=== PATIENT | female | born 1970 | race African-American/Black ===

== ENCOUNTER 2024-09-17 09:14 | Emergency (ER) | payer MEDICARE, SELFPAY ==
--- NOTE | ~2024-09-17 | CT_ITS ---
CT brain wo con Ordering provider: Alda Villaseñor PA-C History: 54 years Female with . MORILLO [id number], worsening today . Comparison: None. Technique: CT of the head without contrast. Radiation reduction technique utilized.The dose-length product was 605.33 mGy-cm. A a FINDINGS: BRAIN PARENCHYMA AND CSF SPACES: No midline shift, mass effect or hemorrhage. The brain parenchyma a nd CSF spaces are otherwise normal. VISUALIZED PARANASAL SINUSES: Ethmoid sinus MASTOIDS: Well aerated. BONES: The bones appear intact. SOFT TISSUES: Visualized nasopharynx is normal. Superficial soft tissues are normal. IMPRESSION: No acute intracranial findings. Reviewed, dictated and finalized at location A. NEL CEMENTER OUTSOLE MACHINE
--- NOTE | ~2024-09-17 | XR_ITS ---
EXAMINATION: XR chest 2V DATE: 09/17/2024 10:46 INDICATION: Right-sided chest pain and heaviness TECHNIQUE: PA and lateral views of the chest were obtained. COMPARISON: Chest CT dated 06/18/2018 FINDINGS: The lungs are clear with no focal airspace opacities, pulmonary edema, pleural effusion or pneumothor ax. The cardiomediastinal silhouette is normal. Cholecystectomy clips in right upper quadrant. Scolio sis with mild upper thoracic levocurvature and thoracolumbar dextrocurvature. Mild to moderate thorac olumbar spondylosis. Suggestion of and mild age-indeterminate L1 superior endplate compression fractu re. IMPRESSION: 1. No acute cardiopulmonary disease. Reviewed, dictated and finalized at location B. INSTRUCTOR
[2024-09-17 09:18] VITALS: BP 139/89; PULSE 56; RESP 16; TEMP 36.3; O2SAT 98
--- NOTE | 2024-09-17 09:22 | ECG_ITS ---
Test Date: 2024-09-17 09:28:17 Measurements Intervals [place] Rate: 61 P: 0 TX: 151 QRS: -25 QRSD: 93 T: 6 QT: 406 QTc: 409 Interpretive Statements SINUS RHYTHM consider anterior ischemia No previous ECG available for comparison Electronically Signed On 09-17-2024 21:50:59 STEM ROLLER OR CRUSHER OPERATOR by Jaya Rutledge M.D.
[2024-09-17 09:30] VITALS: BP 143/96; PULSE 63; RESP 17; O2SAT 98
--- NOTE | 2024-09-17 10:34 | ED_ITS ---
HPI - Headache General Chief Complaint: Headache Stated Complaint: h/a Time Seen by Provider: 09/17/24 09:48 Source: patient Mode of arrival: ambulatory Limitations: no limitations History of Present Illness HPI Narrative: Patient is a 54-year-old female who presents the ED with report of headache. Patient reports she has been dealing with migraines intermittently over the last 6 months. States current migraine began a couple of weeks ago but became worse this morning. Present diffusely throughout her head. Has been taking Imitrex without improvement over the last few days. Reports nausea, lightheadedness, photophobia, phonophobia. Denies focal weakness or numbness, vision changes, fevers, neck pain. Patient does also report having slight chest heaviness over the last several days. Present currently. Denies shortness of breath. Does have history of COPD. Related Data Allergies Allergy/AdvReac Type Severity Reaction Status Date / Time Penicillins Allergy Mild Hives Verified 09/17/24 09:27 Sulfa (Sulfonamide Allergy Mild Hives Verified 09/17/24 09:27 Antibiotics) tramadol Allergy Mild Muscle Verified 09/17/24 09:27 Spasms lurasidone AdvReac Mild Nausea Verified 09/17/24 11:11 naproxen AdvReac Mild Nausea Verified 09/17/24 11:11 NSAIDS (Non-Steroidal AdvReac Mild Nausea Verified 09/17/24 11:11 Anti-Inflamma Review of Systems 2 Review of Systems: All systems reviewed & are unremarkable except as noted in HPI. All systems reviewed & are unremarkable except as noted in HPI and below Exam 2 Narrative: GENERAL: Well appearing, morbidly obese with BMI of 41.2, non-toxic, in no acute distress. HEAD: Normocephalic, atraumatic. EYES: PERRL/EOMI, conjunctiva clear. No nystagmus. NECK: supple, normal ROM, no meningeal signs. RESPIRATORY: Airway patent, respirations nonlabored. Clear to auscultation bilaterally, no rales, rhonchi, wheezing. CARDIOVASCULAR: Regular rate and rhythm without murmurs, rubs, or gallops. MUSCULOSKELETAL: Moves all extremities. No gross deformities. No chest wall tenderness to palpation. SKIN: Warm, dry, normal color. NEURO: A&O X3. Speech clear. Cranial nerves II-XII grossly intact. Steady gait. No ataxic movements. No focal deficits. PSYCHIATRIC: Appropriate mood and affect. Normal interaction. Course Vital Signs Vital signs: Vital Signs Temperature 97.4 F L 09/17/24 09:18 Pulse Rate 56 L 09/17/24 09:18 Respiratory Rate 16 09/17/24 09:18 Blood Pressure 139/89 09/17/24 09:18 Pulse Oximetry 98 09/17/24 09:18 Oxygen Delivery Room Air 09/17/24 09:18 Temperature 97.4 F L 09/17/24 09:18 Pulse Rate 63 09/17/24 09:30 Respiratory Rate 17 09/17/24 09:30 Blood Pressure 143/96 H 09/17/24 09:30 Pulse Oximetry 98 09/17/24 09:30 Oxygen Delivery Room Air 09/17/24 09:18 MDM - Headache MDM Narrative Medical decision making narrative: Patient presented to ED with diffuse migraine headache, worsening this morning. History of migraines. Also reporting chest heaviness. Vital signs are stable upon arrival. Patient is neurovascularly intact. In no acute distress. Patient's headache was not sudden in onset or maximal in severity. There are no focal neurological deficits on exam. Subarachnoid hemorrhage is felt to be unlikely at this time. CT brain was obtained and negative for acute intracranial abnormality. There is no history of fever and neck is supple on evaluation without meningeal signs. Meningitis is felt to be unlikely. No traumatic history or signs of trauma on evaluation. No vision changes or ocular signs of acute glaucoma. Cardiac workup was reassuring. EKG is without ischemic changes. Some baseline artifact noted. Baseline troponin is undetectable. Pain has been ongoing for several days. Very low suspicion for ACS at this time. HEART score =2. Laboratory studies are otherwise unremarkable. Chest x-ray is clear. Patient feeling much better after migraine cocktail. States she is ready to go home. Patient felt to be stable for discharge home at this time. Advised patient to follow with PCP for further evaluation. Given reasons to return. She agrees with plan. Discharged in stable condition. Patient is currently residing at [facility]. Medical Records Attestation: I reviewed the patient's medical records. Lab Data Attestation: I reviewed the patient's lab results. 09/17/24 10:37 09/17/24 10:37 Labs: Lab Results 09/17/24 Range/Units 10:37 WBC 6.4 (4.5-10.0) K/mm3 RBC 4.70 (4.2-5.4) M/mm3 Hgb 13.5 (12.0-15.0) g/dL Hct 41.0 (37.0-47.0) % MCV 87.2 (80-100) fl MCH 28.7 (26-34) pg MCHC 32.9 (32-36) g/dl RDW 14.2 (11.5-14.5) % Plt Count 300 (150-375) k/mm3 MPV 9.5 (7.4-10.4) fl Immature Gran % (Auto) 0.3 (0-0.5) % Neut % (Auto) 51.3 (45.5-73.1) % Lymph % (Auto) 37.1 (18.3-44.2) % [place] % (Auto) 8.1 (2.6-8.5) % Eos % (Auto) 2.6 (0-4.4) % Baso % (Auto) 0.6 (0.2-1.2) % Lymph # (Auto) 2.38 (0.9-3.2) K/mm3 [place] # (Auto) 0.5 (0.1-0.6) K/mm3 Eos # (Auto) 0.2 (0-0.3) K/mm3 Baso # (Auto) 0.0 (0.0-0.1) K/mm3 Abs Immat Gran (auto) 0.02 (0.00-0.031) K/mm3 Absolute Neuts (auto) 3.3 (1.3-6.7) K/mm3 Absolute Nucleated RBC 0.000 (0.0-0.012) K/mm3 Nucleated RBC % 0.0 (0.0-0.2) % PT 12.5 (11.1-14.7) Seconds INR 0.9 APTT 28.4 (22.3-36.8) Seconds Sodium 137 (137-145) mmol/L Potassium 4.2 (3.4-5.0) mmol/L Chloride 105 (98-107) mmol/L Carbon Dioxide 25 (22-30) mmol/L Anion Gap 7 (4-12) mmol/L BUN 12 (7-17) mg/dL Creatinine 0.48 L (0.7-1.0) mg/dL Estim Creat Clear Calc 145 ml/min Estimated GFR > 60 (59 - ) Glucose 73 (65-110) mg/dL Calcium 8.4 (8.4-10.2) mg/dL Total Bilirubin 0.6 (0.2-1.3) mg/dL AST 23 (14-36) U/L ALT 19 (6-35) U/L Alkaline Phosphatase 61 (38-126) U/L Troponin I < 0.012 (0.000-0.034) ng/mL Total Protein 7.0 (6.3-8.2) g/dL Albumin 4.2 (3.5-5.1) g/dL Lipase 87 (23-300) U/L Imaging Data Attestation: I personally reviewed and interpreted this imaging study as follows: Radiologist's impression: ITS Impressions Head CT 09/17/24 10:56 IMPRESSION: No acute intracranial findings. Chest X-Ray 09/17/24 11:04 IMPRESSION: 1. No acute cardiopulmonary disease. ECG Data EKG #1: Attestation: I personally reviewed and interpreted this ECG as follows: ECG completion date: 09/17/24 ECG completion time: 09:28 EKG Interpretation: normal rate (91), sinus rhythm and non-specific ST changes Discharge Plan Discharge Clinical Impression: Atypical chest pain Migraine Qualifiers: Migraine type: unspecified Status migrainosus presence: without status migrainosus Intractability: not intractable Qualified Code(s): G43.909 - Migraine, unspecified, not intractable, without status migrainosus Patient Disposition: Home, Self-Care Condition: Stable Instructions: Antibiotic Form, Chest Pain (ED), Migraine Headache (ED), Acute Headache (ED) Additional Instructions: Your workup here was reassuring. Continue Tylenol and ibuprofen as needed for pain. Utilize Zofran as needed for further nausea. Get plenty of rest. Stay well hydrated. Recommend low light/ low stimulus environment, limiting screen time. Follow-up with your primary care doctor for further evaluation if needed. Return to the ED if you experience worsening or severe pain, severe dizziness, vision changes, unable to keep down food or drink, or any other symptoms of concern. Patient Language: Omani Prescriptions: New ondansetron 4 mg tablet,disintegrating 4 mg PO Q8H PRN (Reason: nausea and vomiting) Qty: 15 0RF Follow-up/Referrals: UNKNOWN,DOCTOR [Primary Care Provider] - Stand Alone Forms: Work/School Release IP Time of Disposition: 12:59 Quality HEART score for chest pain patients History: slightly suspicious ECG: normal Age: > 45 and < 65 years Risk factors: 1 or 2 risk factors Troponin: < or = to 1x normal limit Heart score: 2
[2024-09-17 10:47] LABS: Basophils Percent Auto 0.6 % (0.2-1.2); Eosinophils Absolute Auto 0.2 K/mm3 (0-0.3); Eosinophils Percent Auto 2.6 % (0-4.4); Hemoglobin 13.5 g/dL (12.0-15.0); Immature Granulocyte Absolute 0.02 K/mm3 (0.00-0.031); Immature Granulocyte Percent A 0.3 % (0-0.5); Lymphocytes Absolute Auto 2.38 K/mm3 (0.9-3.2); Lymphocytes Percent Auto 37.1 % (18.3-44.2); Mean Corpuscular HGB Conc 32.9 g/dl (32-36); Mean Corpuscular Hemoglobin 28.7 pg (26-34); Mean Corpuscular Volume 87.2 fl (80-100); Mean Platelet Volume 9.5 fl (7.4-10.4); Monocytes Absolute Auto 0.5 K/mm3 (0.1-0.6); Monocytes Percent Auto 8.1 % (2.6-8.5); Neutrophils Absolute Auto 3.3 K/mm3 (1.3-6.7); Neutrophils Percent Auto 51.3 % (45.5-73.1); Platelet Count Result 300 k/mm3 (150-375); Red Cell Distribution Width 14.2 % (11.5-14.5); White Blood Count 6.4 K/mm3 (4.5-10.0)
[2024-09-17] MEDS: diphenhydrAMINE HCl INJ 50 MG/ML VIAL 25 MG IV PUSH (10:51)
[2024-09-17] MEDS: ACETAMINOPHEN 500 MG TABLET 1000 MG PO (10:51)
[2024-09-17] MEDS: SODIUM CHLORIDE 0.9% IV 1,000 ML 999 ML IV CONT (10:51)
[2024-09-17] MEDS: METOCLOPRAMIDE HCL INJ 10 MG/2 ML VIAL IV PUSH (10:51)
[2024-09-17 11:00] LABS: Alanine Aminotransferase 19 U/L (6-35); Albumin Level 4.2 g/dL (3.5-5.1); Alkaline Phosphatase 61 U/L (38-126); Anion Gap 7 mmol/L (4-12); Aspartate Amino Transferase 23 U/L (14-36); Bilirubin,Total 0.6 mg/dL (0.2-1.3); Blood Urea Nitrogen 12 mg/dL (7-17); Calcium 8.4 mg/dL (8.4-10.2); Carbon Dioxide 25 mmol/L (22-30); Chloride 105 mmol/L (98-107); Estimated CRCL calculation 145 ml/min; Estimated Glomerular Filt Rate > 60; Glucose 73 mg/dL (65-110); Lipase 87 U/L (23-300); Potassium 4.2 mmol/L (3.4-5.0); Sodium 137 mmol/L (137-145)
[2024-09-17 11:05] LABS: INR 0.9; Prothrombin Time 12.5 Seconds (11.1-14.7)
[2024-09-17 11:06] LABS: Partial Thromboplastin Time 28.4 Seconds (22.3-36.8)
[2024-09-17 11:10] LABS: Troponin I < 0.012 ng/mL (0.000-0.034)
== END 2024-09-17 13:28 | disposition home or self-care (01) ==
PROVIDERS: Emergency Provider Physician Assistant
DX: R07.89 Other chest pain (principal); G43.909 Migraine, unspecified, not intractable, without status migrainosus; J44.9 Chronic obstructive pulmonary disease, unspecified
CPT/HCPCS: 36415; 70450; 71046; 80053; 83690; 84484; 85025; 85610; 85730; 93005; 96361; 96374; 96375; 99284; A9270; J1200; J2765; J7030